=== PATIENT | male | born 1960 | race African-American/Black ===

== ENCOUNTER 2016-09-21 07:08 | Day surgery (SDC) | payer OTHER ==
[~2016-09-21] VITALS: Ht 170.2 cm; Wt 83.0 kg
[2016-09-21 08:44] VITALS: Ht 170.2 cm; Wt 83.0 kg
[2016-09-21] MEDS ORDERED: ASPI81TA3 PO (08:52)
[2016-09-21] MEDS ORDERED: ENAL10TA PO (08:52)
[2016-09-21] MEDS ORDERED: GLIP5TAB13 PO (08:52)
[2016-09-21] MEDS ORDERED: SIMV20TA2 PO (08:52)
[2016-09-21] MEDS ORDERED: HYD25 PO (08:52)
[2016-09-21 09:09] VITALS: BP 144/79; PULSE 70; RESP 16
--- NOTE | 2016-09-21 09:48 | OPPN ---
Date/Time of Note Date/Time of Note DATE: 09/21/16 TIME: 09:46 Operative Report Preoperative Diagnosis Screening colonoscopy Postoperative Diagnosis Rectal polyp was removed Internal hemorrhoids Operation/Procedure Performed Colonoscopy and biopsy Provider: ART LORENZO MD Anesthesia Type: moderate sedation Estimated blood loss: none Transfusion Required: no Specimens Rectal polyp Grafts/Implants: none Complications: no ART LORENZO MD Sep 21, 2016 09:48
[2016-09-21] MEDS ORDERED: MIDAZOLAM 1 MG/ML 2 ML INJ ONE ×2 (09:55)
[2016-09-21] MEDS ORDERED: FENTAnyl 50 MCG/ML VIAL ONE (09:55)
[2016-09-21 10:16] VITALS: BP 136/79; PULSE 71; RESP 12
--- NOTE | 2016-09-21 11:44 | GILP ---
DATE OF PROCEDURE: 09/21/2016 PROCEDURE PERFORMED: Colonoscopy and biopsy. SURGEON: Dr. Rivera. PREOPERATIVE DIAGNOSIS: Screening colonoscopy. POSTOPERATIVE DIAGNOSES: 1. Colonoscopy all the way to the cecum. 2. Small rectal polyp was removed. 3. Internal hemorrhoids. 4. Melanosis coli. INDICATION: Mr. Walker Booth is a 56-year-old male patient who was scheduled for screening colonoscopy. The procedure and possible complications were well explained to the patient. He understood and consented to the procedure. DESCRIPTION OF PROCEDURE: Under influence of fentanyl and Versed, the colonoscope was carefully introduced in the rectum and under direct vision it was advanced all the way to the cecum. FINDINGS: The patient had a small rectal polyp and it was removed using the biopsy forceps. He had melanosis coli and internal hemorrhoids. He tolerated the procedure very well and there is no complication from the procedure. At the end of procedure, he was awake with stable vital signs and he was discharged home in the care of his family. IMPRESSION: Please see postoperative diagnoses. PLAN: Next screening colonoscopy in 10 years. Dictated By: MD RENEE Luis/ernestine/rojas /Document#: [id number] CC: Shaw Rivera MD;*EndCC*
== END 2016-09-21 11:14 | disposition home or self-care (01) ==
LOC: GIL 07:08
PROVIDERS: ATTEND Internal Medicine Gastroenterology
DX: Z12.11 Encounter for screening for malignant neoplasm of colon (principal); K62.1 Rectal polyp; K64.8 Other hemorrhoids; I10 Essential (primary) hypertension; E11.9 Type 2 diabetes mellitus without complications
CPT/HCPCS: 45380; 82962; 88305; J2250; J3010